=== PATIENT | female | born 1975 | race Caucasian/White ===

== ENCOUNTER 2022-08-06 10:41 | Emergency (ER) | payer OTHER, SELFPAY ==
[2022-08-06 10:47] VITALS: BP 133/73; PULSE 100; RESP 19; TEMP 35.7; O2SAT 96; BMI 51.3
--- NOTE | 2022-08-06 13:18 | ED.GENADULT ---
HPI - General Adult General Chief complaint: General Medical Stated complaint: body swelling Time Seen by Provider: 08/06/22 12:56 Source: patient Mode of arrival: ambulatory Limitations: no limitations History of Present Illness HPI narrative: 47-year-old female with history of drug abuse presents with total body swelling. She noted it this morning. It is not associated with any new pain, difficulty breathing, chest pain. She has chronic lower extremity edema which is unchanged. She reports that the symptoms have gotten better on their own without any intervention. Prior to this reaction, she has never had this complaint. She denies any rashes, pruritic complaints or allergenic complaints. Patient describes her symptoms as mild to moderate nature. She actually did not want to come the hospital but her correction house told her to come. Related Data Allergies Allergy/AdvReac Type Severity Reaction Status Date / Time codeine Allergy Unknown Verified 08/06/22 13:18 Penicillins Allergy Unknown Verified 08/06/22 13:18 Review of Systems Review of Systems: CONSTITUTIONAL: Denies weight loss, fever and chills. HEENT: Denies changes in vision and hearing. RESPIRATORY: Denies SOB and cough. CV: Denies palpitations no CP. Positive edema GI: Denies abdominal pain, nausea, vomiting and diarrhea. : Denies dysuria and urinary frequency. MSK: + myalgia and joint pain. SKIN: Denies rash and pruritus. NEUROLOGICAL: Denies headache and syncope. PSYCHIATRIC: Denies recent changes in mood. Denies anxiety and depression. All other ROS are negative unless in HPI Physical Exam ED Vital Signs: Vital Signs - 24 hr 08/06/22 10:47 Temperature 96.3 F L Pulse Rate 100 Respiratory Rate 19 Blood Pressure 133/73 Pulse Oximetry 96 Oxygen Delivery Method Room Air BMI result Body Mass Index 51.3 GEN: Well developed, no acute distress, alert, oriented HEENT: Normocephalic, atraumatic, normal external ears, nose appears normal, no oropharyngeal edema or exudates Eyes: Normal to appearance Neck: Supple, no lymphadenopathy Respiratory: Talks in complete sentences, no respiratory distress, clear to auscultation bilaterally Cardiovascular: Regular rate and rhythm, no murmurs rubs or gallops Abdomen: Soft, nontender, nondistended, no guarding, no rebound Back: No CVA tenderness Extremities: No clubbing cyanosis + 2+ edema Neurologic: No focal neurologic deficits, cranial nerves 2-12 intact, strength is 5/5 bilaterally, gait normal Skin: No rash Course Course Course Narrative: 47-year-old female presents total body swelling. She denies any shortness of breath. She has not had this before but does have chronic lower extremity edema. Examination revealed 2+ by pedal edema. Otherwise her exam was normal. There are no crackles or pulmonary complaints. Will obtain routine laboratory tests to rule out a plethora of differential diagnoses. Medical Decision Making Medical Decision Making [facility] Narrative: 47-year-old female with history of polysubstance abuse presents for evaluation of total body swelling or anasarca. Exam revealed 2+ by pedal edema. Otherwise her exam is unremarkable. Will obtain laboratory analysis to make sure there is no significant protein deficiency or kidney dysfunction. Patient actually reports that her symptoms have gotten significantly better since this morning. Differential Diagnosis Differential Diagnoses: The differential diagnosis associated with the presentation includes (Anasarca, edema, renal dysfunction, hypoalbuminemia, low protein state) Admission/Observation Consideration of admission/observation: Escalation of care including admission/observation considered Lab Data [facility] Lab Attestation statement: I reviewed the patient's lab results. Discharge Plan Discharge Clinical Impression: Edema, peripheral
[2022-08-06 14:38] VITALS: BP 116/63; PULSE 80; RESP 16; TEMP 36.9; O2SAT 93
[2022-08-06 16:44] LABS: MANUAL DIFF FLAG NO
[2022-08-06 16:47] LABS: Basophils Absolute Auto 0.1 X10*3/uL (0.0-0.2); Basophils Percent Auto 0.4 % (0-2); Eosinophils Absolute Auto 0.2 X10*3/uL (0.0-0.4); Eosinophils Percent Auto 1.2 % (0-4); Hematocrit 32.4 % (37.0-47.0); Hemoglobin 10.7 g/dl (12.0-16.0); Imm Gran Abs Auto 0.11 X10*3/uL (0.00-0.03); Imm Gran Pct Auto 0.8 % (0.0-0.4); Lymphocytes Absolute Auto 2.2 X10*3/uL (1.2-4.9); Lymphocytes Percent Auto 15.3 % (20-40); Mean Corpuscular Hemoglobin 29.8 pg (27.0-33.0); Mean Corpuscular Volume 90.3 fL (80.0-98.0); Mean Platelet Volume 10.4 fL (9.4-12.3); Monocytes Absolute Auto 0.5 X10*3/uL (0.1-1.2); Monocytes Percent Auto 3.4 % (2-11); Neutrophils Absolute Auto 11.5 x10*3/uL (2.0-8.3); Neutrophils Percent Auto 78.9 % (45-73); Platelet Count 346 X10*3/uL (160-400); Red Blood Count 3.59 X10*6/uL (4.20-5.50); Red Cell Distribution Width 14.4 % (11.0-16.0); White Blood Count 14.6 X10*3/uL (4.8-10.8)
[2022-08-06 17:13] LABS: B Type Natriuretic Peptide 66 pg/mL (<100)
[2022-08-06 18:18] LABS: Alanine Aminotransferase 22 U/L (0-31); Albumin Level 3.8 g/dL (3.5-5.0); Alkaline Phosphatase 88 U/L (39-117); Anion Gap 16 (12-20); Aspartate Amino Transferase 19 U/L (5-31); Bilirubin Direct < 0.2 mg/dL (0.0-0.5); Bilirubin Total 0.3 mg/dL (0.0-1.0); Blood Urea Nitrogen 16 mg/dL (9-16); Calcium 9.1 mg/dL (8.4-10.2); Carbon Dioxide 24 mmol/L (22-29); Chloride 104 mmol/L (96-108); Creatinine Clr Calc Pharmacy 98.2; Estimated Glomerular Filt Rate > 60; Glucose Random 111 mg/dL (60-115); Lipase 8 U/L (8-78); Potassium 4.3 mmol/L (3.3-5.1); Sodium 140 mmol/L (135-145)
[2022-08-06 18:31] LABS: Thyroid Stimulating Hormone 1.04 uIU/mL (0.32-4.0)
--- NOTE | 2022-08-06 19:22 | PC.NURSE ---
discharge instructions given/explained, steady gait, no respiratory distress, no sob, able to speak in full sentences, questions answered
[2022-08-06 19:23] VITALS: BP 123/70; PULSE 82; RESP 17; TEMP 36.6; O2SAT 95
== END 2022-08-06 19:27 | disposition home or self-care (01) ==
PROVIDERS: Emergency Provider Emergency Medicine; PCP Student in an Organized Health Care Education/Training Program
DX: R60.0 Localized edema (principal)
CPT/HCPCS: 36415; 80053; 82248; 83690; 83880; 84443; 85025; 99283; 99284